=== PATIENT | male | born 1965 | race Caucasian/White ===

== ENCOUNTER 2016-06-06 13:42 | Day surgery (SDC) | payer BC ==
[~2016-06-06 13:42] MED LIST: RINGERS SOLUTION,LACTATED 1,000 ML IV PRN
--- OUTSIDE RECORDS SUMMARY | 2016-06-06 13:46 | XMS REPORT | Continuity of Care Document ---
:1965 Author Organization [facility] ([facility]) Address [address] [place] [address] Phone [phone] Care Team Providers Name Role Phone Unavailable Primary Care Provider Unavailable Source Comments This disclosure is being made pursuant to the Care Everywhere program, applicable federal and state laws, and may not contain all informaitonavailable regarding this patient.[facility] ([facility]) Active Allergies and Adverse Reactions No Active Allergies Current Medications Not on file Active Problems Not on file Immunizations Name Dates Previously Given Next Due Influenza, unspecified 12/07/2005 Social History Tobacco Use Types Packs/Day Years Used Date Never Assessed Last Filed Vital Signs Vital Sign Reading Time Taken Blood Pressure 116/58 06/09/2006 8:00 AM CDT Pulse 88 06/09/2006 8:00 AM CDT Temperature 37.1 C (98.78 F) 06/09/2006 8:00 AM CDT Respiratory Rate 16 06/09/2006 8:00 AM CDT Height 1.829 m (6') 06/08/2006 11:18 AM CDT Weight 98.998 kg (218 lb 4 oz) 06/08/2006 11:18 AM CDT Body Mass Index 29.59 06/08/2006 11:18 AM CDT Oxygen Saturation - - Plan of Care Health Maintenance Due Date Last Done Comments Hepatitis B Vaccine (1 of 3 - Primary Series) 1965 Tdap Vaccine 1976 Lipid Disorder Screening 07/25/1983 MMR Vaccine 07/25/1983 Td Vaccine 07/25/1983 Colonoscopy 2015 Prostate Cancer Screening 07/25/2015 Influenza Vaccine: Seasonal (#1) 09/07/2015 12/07/2005 Results from Last 3 Months Not on file
[2016-06-06] MEDS ORDERED: RINGERS SOLUTION,LACTATED 1,000 ML IV PRN (15:01)
[2016-06-06 16:03] VITALS: BP 146/93
--- NOTE | 2016-06-06 17:54 | OR ---
Operative Report - Dictated Report Narrative: OPERATIVE REPORT DATE OF OPERATION: 06/06/2016 PREOPERATIVE DIAGNOSIS: No prior dedicated colon studies POSTOPERATIVE DIAGNOSIS: Normal colonoscopy OPERATION: Colonoscopy SURGEON: Georgia Benítez MD ANESTHESIA: MARSHA Zamudio CRNA INDICATIONS FOR PROCEDURE: The patient is a 50-year-old male who presents self referred for initial screening colonoscopy. There is no family history of colon cancer. His uncle of metastatic cancer which may have started in the colon. The patient is currently asymptomatic. The patient receives his care at the [facility] and was advised to have a colonoscopy. He prefers to have that performed here. He was given a prep kit by the [facility]. FINDINGS: Residual liquid stool. Adequate prep for diagnostic exam. Very tortuous colon otherwise normal colonoscopy to the cecum NARRATIVE OF PROCEDURE: The patient was identified in the holding area, and prior to the administration of anesthetic, a multidisciplinary timeout was observed. With the patient in the left lateral position and after the administration of intravenous sedation, the perineum was inspected. There was no evidence of pilonidal disease or skin breakdown. The external appearance of the anus was normal. Sphincter tone was good. The flexible fiberoptic colonoscope was inserted into the rectum which was insufflated with air. The rectal mucosa and submucosal vascular pattern appeared normal, the prep was seen to be less than complete with some residual liquid stool. This however could be suctioned completely, adequate for diagnostic exam. The scope was advanced through a tortuous sigmoid colon, up the descending colon, and around the splenic flexure where the triangular haustral architecture of the transverse colon was seen. The scope was advanced across the transverse colon, around the hepatic flexure to the cecum, where the confluence of tenia and the ileocecal valve were identified. The mucosa at this level appeared normal. The scope was then slowly withdrawn in a circular fashion so that all aspects of colonic mucosa were inspected. The colon was very tortuous in nature but normal in caliber. The haustral architecture appeared well preserved throughout with no evidence of external compression. The mucosa and submucosal vascular pattern appeared normal, specifically there was no gross evidence to suggest colitis or inflammatory bowel disease and no AV malformations were seen. No diverticulosis was demonstrated. No polyps were encountered. The scope was gradually withdrawn to the level of the rectum. As much insufflated air as possible was removed. The scope was withdrawn from the patient and the procedure terminated. The patient tolerated the anesthetic and procedure well without complication and was transferred back to the ambulatory surgery area awake and in stable condition. The patient remained stable throughout a period of postoperative observation. He denied abdominal discomfort, was able to tolerate by mouth intake, and was up without assistance. I shared the operative findings with the patient and he was given copies of the photographs which appear in the medical record. He was discharged home with instructions not to engage in hazardous activity today, but may resume normal activity tomorrow, and advance diet as tolerated. He is to continue those medications as listed in the history and physical exam. RECOMMENDATION: Colon surveillance in 10 years depending upon findings and symptoms Reviewed and electronically signed
== END 2016-06-06 13:43 | disposition home or self-care (01) ==
LOC: AMB 13:42
PROVIDERS: ATTEND Surgery
PROC: 0DJD8ZZ Inspection of Lower Intestinal Tract, Via Natural or Artificial Opening Endoscopic (ICD-10-PCS; principal; 2016-06-06 14:20)
DX: Z12.11 Encounter for screening for malignant neoplasm of colon (principal); Z87.891 Personal history of nicotine dependence; Z68.30 Body mass index [BMI] 30.0-30.9, adult
CPT/HCPCS: 45378; G0121